=== PATIENT | male | born 1980 | race American Indian/Alaskan Native ===

== ENCOUNTER 2017-06-24 09:19 | Emergency (ER) | payer OTHER ==
[2017-06-24 10:25] VITALS: BP 109/69
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
[2017-06-24] MEDS ORDERED: TYLENOL PO ONE (11:46)
== END 2017-06-24 12:46 | disposition left against medical advice (07) ==
LOC: ED 09:19
DX: G44.89 Other headache syndrome (principal); I10 Essential (primary) hypertension; F17.200 Nicotine dependence, unspecified, uncomplicated; V49.49XA Driver injured in collision with other motor vehicles in traffic accident, initial encounter; Y93.89 Activity, other specified; Y92.89 Other specified places as the place of occurrence of the external cause; Y99.8 Other external cause status
CPT/HCPCS: 99282